=== PATIENT | female | born 1940 | race Caucasian/White ===

== ENCOUNTER → 2023-09-04 11:25 | Outpatient (REF) | payer MEDICARE, SELFPAY ==
[2023-09-04 12:59] LABS: ALT (SGPT) 20 U/L (0-35); AST (SGOT) 36 U/L (14-36); HDL Cholesterol 99 mg/dl; LDL Cholesterol, Calculated 67 mg/dl; Total Cholesterol 182 mg/dl (50-199); Triglyceride 83 mg/dl (10-149); Very Low Density Lipoprotein 16 mg/dl (0-30)
== END ==
LOC: REG 11:25
PROVIDERS: ATTENDING PHYSICIAN Internal Medicine Cardiovascular Disease; FAMILY PHYSICIAN Internal Medicine
DX: E78.00 Pure hypercholesterolemia, unspecified (principal)
CPT/HCPCS: 36415; 80061; 84450; 84460

== ENCOUNTER → 2023-11-18 17:48 | Outpatient (REF) | payer MEDICARE, SELFPAY | LOC: WDC 17:48 | PROVIDERS: ATTENDING PHYSICIAN Nurse Practitioner Adult Health; FAMILY PHYSICIAN Internal Medicine | DX: Z12.31 Encounter for screening mammogram for malignant neoplasm of breast (principal) | CPT/HCPCS: 77063; 77067 ==